=== PATIENT | female | born 1970 | race Caucasian/White ===

== ENCOUNTER → 2016-11-17 | Outpatient (CLI) | payer OTHER ==
[2016-11-19 14:38] LABS: DILUTE RUSSELL VIPOR VENOM 40.6 sec (0.0-47.0); PTT-LA 37.5 sec (0.0-51.9); THROMBIN TIME 18.6 sec (0.0-23.0)
[2016-11-19 17:36] LABS: LUPUS PANEL INTERPRETATION Comment: (.)
== END ==
LOC: OD 14:10
PROVIDERS: ATTEND Obstetrics & Gynecology
DX: M06.9 Rheumatoid arthritis, unspecified (principal)
CPT/HCPCS: 36415; 83520; 85652; 86225; 86235; 86430

== ENCOUNTER 2016-12-19 09:52 | Day surgery (SDC) | payer OTHER ==
[~2016-12-19 09:52] MED LIST: PROPOFOL INJ 200 MG/20 ML VIAL IV ONE
[2016-12-19 12:10] VITALS: BP 145/87
--- NOTE | 2016-12-19 13:27 | Operative Report ---
Operative Report DATE OF SURGERY: 12/19/16 Operative Report: The risks, benefits and alternatives of the procedure including risks of bleeding, perforation requiring surgery are explained to the patient detail and informed consent was obtained. Patient was brought back to the endoscopy suite and placed in the left, lateral decubital position. Timeout was called. Propofol medications administered. A rectal examination was done which did not reveal any masses, tears or fissures. An Olympus videoscope was inserted into the patient's rectum. The scope was then carefully advanced all the way to the cecum. The cecum was identified by the usual anatomical landmarks including the ileocecal valve as well as the appendiceal office. Photodocumentation was obtained. The scope was then sequentially pulled back via the various segments of the colon including the ascending colon, hepatic flexure, transverse colon, splenic flexure, descending colon finding to the rectosigmoid portions of the colon. Retroflexion maneuvers performed. The risks benefits and alternatives of the procedure explained to the patient in detail and informed consent is obtained.A GIF Olympus video scope was inserted into the patient's mouth and hypopharynx, the esophagus is identified intubated and insufflated, the scope was then advanced through the esophagus stomach and duodenum, retroflexion maneuver is done, the esophagus stomach and first and second portions of the duodenum examined PREOPERATIVE DIAGNOSIS: Iron deficiency anemia. Previous history of colon polyp. Change of bowel habits POSTOPERATIVE DIAGNOSIS: Mild right side inflammation status post biopsy. Internal hemorrhoids. Gastritis status post biopsy rule out Helicobacter pylori. Duodenitis status post biopsy rule out celiac disease. Esophagitis versus Srivastava's, biopsies obtained to confirm OPERATION: Colonoscopy with biopsy. EGD with biopsy SURGEON: ROSA ISELA BOWMAN ANESTHESIA: LMAC TISSUE REMOVED OR ALTERED: As discussed above. COMPLICATIONS: None. ESTIMATED BLOOD LOSS: None. INTRAOPERATIVE FINDINGS: As noted above. PROCEDURE: Patient tolerated the procedure well. No immediate postprocedure complications are noted. Patient discharged in good condition. Discharge date 12/19/2016. Discharge diet: Regular. Discharge activity: Regular. 2-3 week follow-up to discuss findings. Patient is instructed to call the office or proceed to the emergency room should there be any further problems or questions. We will wait on pathology.
== END 2016-12-19 12:10 | disposition home or self-care (01) ==
LOC: END 09:52
PROVIDERS: ATTEND Internal Medicine Gastroenterology
PROC: 0DB58ZX Excision of Esophagus, Via Natural or Artificial Opening Endoscopic, Diagnostic (ICD-10-PCS; 2016-12-19)
PROC: 0DBF8ZX Excision of Right Large Intestine, Via Natural or Artificial Opening Endoscopic, Diagnostic (ICD-10-PCS; 2016-12-19)
PROC: 0DB68ZX Excision of Stomach, Via Natural or Artificial Opening Endoscopic, Diagnostic (ICD-10-PCS; principal; 2016-12-19 12:30)
PROC: 0DB98ZX Excision of Duodenum, Via Natural or Artificial Opening Endoscopic, Diagnostic (ICD-10-PCS; 2016-12-19 12:30)
DX: K63.5 Polyp of colon (principal); K29.80 Duodenitis without bleeding; K20.9 Esophagitis, unspecified; K29.50 Unspecified chronic gastritis without bleeding; B96.81 Helicobacter pylori [H. pylori] as the cause of diseases classified elsewhere; K52.9 Noninfective gastroenteritis and colitis, unspecified; K64.8 Other hemorrhoids; J44.9 Chronic obstructive pulmonary disease, unspecified; D50.9 Iron deficiency anemia, unspecified; E78.00 Pure hypercholesterolemia, unspecified; I10 Essential (primary) hypertension; E66.9 Obesity, unspecified; G43.909 Migraine, unspecified, not intractable, without status migrainosus; F90.2 Attention-deficit hyperactivity disorder, combined type; Z68.32 Body mass index [BMI] 32.0-32.9, adult; Z79.51 Long term (current) use of inhaled steroids; Z79.891 Long term (current) use of opiate analgesic; Z87.891 Personal history of nicotine dependence
CPT/HCPCS: 43239; 45380; 88342 ×2; 88305 ×2; J2704; 810

== ENCOUNTER 2016-12-27 11:14 | Outpatient (CLI) | payer OTHER ==
[~2016-12-27 11:14] MED LIST changes: +FERRIC CARBOXYMALTOSE 750 MG in NORMAL SALINE 250 ML IV PRN; +NORMAL SALINE 250 ML IV PRN; -PROPOFOL INJ 200 MG/20 ML VIAL IV ONE
[2016-12-27 11:36] VITALS: BP 139/88
== END 2016-12-27 12:21 | disposition home or self-care (01) ==
LOC: II 11:14 → 5TH 11:24 → II 12:21
PROVIDERS: ATTEND Internal Medicine
PROC: 3E033GC Introduction of Other Therapeutic Substance into Peripheral Vein, Percutaneous Approach (ICD-10-PCS; principal; 2016-12-27)
DX: D50.8 Other iron deficiency anemias (principal); K90.9 Intestinal malabsorption, unspecified
CPT/HCPCS: 96365; J7050; J1439

== ENCOUNTER 2017-01-03 10:41 | Outpatient (CLI) | payer OTHER ==
[~2017-01-03 10:41] MED LIST changes: -NORMAL SALINE 250 ML IV PRN
[2017-01-03] MEDS: NORMAL SALINE 250 ML IV PRN ×2 (11:08→11:26)
[2017-01-03 13:13] VITALS: BP 138/78
== END 2017-01-03 12:15 | disposition home or self-care (01) ==
LOC: II 10:41 → 5TH 10:47 → II 12:15
PROVIDERS: ATTEND Internal Medicine
PROC: 3E0337Z Introduction of Electrolytic and Water Balance Substance into Peripheral Vein, Percutaneous Approach (ICD-10-PCS; principal; 2017-01-03)
DX: D50.8 Other iron deficiency anemias (principal); K90.9 Intestinal malabsorption, unspecified
CPT/HCPCS: 96367; J7050; J1439; 96374

== ENCOUNTER → 2017-01-05 | Outpatient (CLI) | payer OTHER ==
--- NOTE | 2017-01-05 10:35 | WOMENS IMAGING REPORT ---
EXAM DESCRIPTION: U/S BREAST UNILATERAL, COMPL; BILAT DIAGNOSTIC MAMMO W/CAD COMPLETED DATE/TIME: 01/05/2017 10:23 am; 01/05/2017 10:20 am REASON FOR STUDY: LEFT BREAST PAIN; BREAST PAIN; N64.4 COMPARISON: 01/07/2016 and 01/05/2015. TECHNIQUE: Standard craniocaudal and mediolateral oblique views of each breast recorded using digita l acquisition. Additional "push-back" craniocaudal and mediolateral oblique images acquired. Additional true lateral images of the left breast required. LIMITATIONS: None. FINDINGS: IMPLANTS: Bilateral subglandular implants. Appear mammographically intact. RIGHT BREAST MASSES: No suspicious masses. CALCIFICATIONS: No new or suspicious calcifications. ARCHITECTURAL DISTORTION: None. DEVELOPING DENSITY: None. ASYMMETRY: None noted. OTHER: No other significant findings. LEFT BREAST MASSES: No suspicious masses. CALCIFICATIONS: No new or suspicious calcifications. ARCHITECTURAL DISTORTION: None. DEVELOPING DENSITY: None. ASYMMETRY: None noted. OTHER: No other significant finding. Read with the assistance of CAD: .[facility] - R2 Cenova Version 1.3 .[facility] - R2 Cenova Version 1.3 .[facility] - R2 Cenova Version 2.4 .[facility] [place] Cenova Version 2.4 [facility] - R2 Health Program Specialist Version 9.2 BREAST ULTRASOUND: TECHNIQUE: Static and dynamic grayscale images acquired of the right and left breast in the specific areas of clinical/mammographic concern. Selected color Doppler images recorded. ELASTOGRAPHY PERFORMED: No. LIMITATIONS: None. FINDINGS: MASS: Bilateral breast implants which appear sonographically intact. No worrisome sonographic findin gs. ELASTOGRAPHY CHARACTERISTICS: Not applicable. OTHER: No other significant finding. IMPRESSION: Stable bilateral mammogram. Bilateral breast implants appear intact mammographically an d sonographically. No worrisome findings. BREAST DENSITY: b. There are scattered areas of fibroglandular density. BIRAD: 2 Benign findings. RECOMMENDATION: RECOMMENDED FOLLOW UP: Birads 1 or 2: No breast imaging finding to explain the patie nt's presenting complaint. Further intervention should be based on the degree of clinical suspicion. SPECIFIC INTERVENTION/IMAGING/CONSULTATION RECOMMENDED:No additional intervention/ imaging/consultati on needed at this time. COMMUNICATION:The negative/benign results were communicated to the patient. COMMENT: The patient has been notified of the results by letter per SA requirements. Additional no tification policies are in place for contacting patient with suspicious or incomplete findings. Quality ID #[id number]: The [employer] recommends an annual screening mammogram for women aged 40 years or over. This facility utilizes a reminder system to ensure that all patients receive reminder letters, and/or direct phone calls for appointments. This includes reminders for routine scr eening mammograms, diagnostic mammograms, or other Breast Imaging Interventions when appropriate. Th is patient will be placed in the appropriate reminder system. The [employer] (ACR) has developed recommendations for screening MRI of the breast s in certain patient populations, to be used in conjunction with mammography. Breast MRI surveillanc e may be appropriate for women with more than 20% lifetime risk of developing breast cancer as deter mined by genetic testing, significant family history of the disease, or history of mantle radiation f or Hodgkins Disease. ACR Practice Guidelines 2008. TECHNICAL DOCUMENTATION: FINDING NUMBER: (1) ASSESSMENT: (1) JOB ID: [id number] [employer]- All Rights Reserved
--- NOTE | 2017-01-05 10:35 | WOMENS IMAGING REPORT ---
EXAM DESCRIPTION: U/S BREAST UNILATERAL, COMPL; BILAT DIAGNOSTIC MAMMO W/CAD COMPLETED DATE/TIME: 01/05/2017 10:23 am; 01/05/2017 10:20 am REASON FOR STUDY: LEFT BREAST PAIN; BREAST PAIN; N64.4 COMPARISON: 01/07/2016 and 01/05/2015. TECHNIQUE: Standard craniocaudal and mediolateral oblique views of each breast recorded using digita l acquisition. Additional "push-back" craniocaudal and mediolateral oblique images acquired. Additional true lateral images of the left breast required. LIMITATIONS: None. FINDINGS: IMPLANTS: Bilateral subglandular implants. Appear mammographically intact. RIGHT BREAST MASSES: No suspicious masses. CALCIFICATIONS: No new or suspicious calcifications. ARCHITECTURAL DISTORTION: None. DEVELOPING DENSITY: None. ASYMMETRY: None noted. OTHER: No other significant findings. LEFT BREAST MASSES: No suspicious masses. CALCIFICATIONS: No new or suspicious calcifications. ARCHITECTURAL DISTORTION: None. DEVELOPING DENSITY: None. ASYMMETRY: None noted. OTHER: No other significant finding. Read with the assistance of CAD: .[facility] - R2 Cenova Version 1.3 .[facility] Imaging - R2 Cenova Version 1.3 .[facility] - R2 Cenova Version 2.4 .[facility] [place] - R2 Cenova Version 2.4 .[facility] - R2 Market Research Analyst Version 9.2 BREAST ULTRASOUND: TECHNIQUE: Static and dynamic grayscale images acquired of the right and left breast in the specific areas of clinical/mammographic concern. Selected color Doppler images recorded. ELASTOGRAPHY PERFORMED: No. LIMITATIONS: None. FINDINGS: MASS: Bilateral breast implants which appear sonographically intact. No worrisome sonographic findin gs. ELASTOGRAPHY CHARACTERISTICS: Not applicable. OTHER: No other significant finding. IMPRESSION: Stable bilateral mammogram. Bilateral breast implants appear intact mammographically an d sonographically. No worrisome findings. BREAST DENSITY: b. There are scattered areas of fibroglandular density. BIRAD: 2 Benign findings. RECOMMENDATION: RECOMMENDED FOLLOW UP: Birads 1 or 2: No breast imaging finding to explain the patie nt's presenting complaint. Further intervention should be based on the degree of clinical suspicion. SPECIFIC INTERVENTION/IMAGING/CONSULTATION RECOMMENDED:No additional intervention/ imaging/consultati on needed at this time. COMMUNICATION:The negative/benign results were communicated to the patient. COMMENT: The patient has been notified of the results by letter per SA requirements. Additional no tification policies are in place for contacting patient with suspicious or incomplete findings. Quality ID #[id number]: The [employer] recommends an annual screening mammogram for women aged 40 years or over. This facility utilizes a reminder system to ensure that all patients receive reminder letters, and/or direct phone calls for appointments. This includes reminders for routine scr eening mammograms, diagnostic mammograms, or other Breast Imaging Interventions when appropriate. Th is patient will be placed in the appropriate reminder system. The [employer] (ACR) has developed recommendations for screening MRI of the breast s in certain patient populations, to be used in conjunction with mammography. Breast MRI surveillanc e may be appropriate for women with more than 20% lifetime risk of developing breast cancer as deter mined by genetic testing, significant family history of the disease, or history of mantle radiation f or Hodgkins Disease. ACR Practice Guidelines 2008. TECHNICAL DOCUMENTATION: FINDING NUMBER: (1) ASSESSMENT: (1) JOB ID: [id number] [employer]- All Rights Reserved
== END ==
LOC: WI 06:56
PROVIDERS: ATTEND Obstetrics & Gynecology
DX: N64.4 Mastodynia (principal); Z98.82 Breast implant status
CPT/HCPCS: 76641; G0204; 77066

== ENCOUNTER → 2017-01-26 | Outpatient (CLI) | payer OTHER ==
--- NOTE | 2017-01-26 12:52 | RADIOLOGY REPORT (SQ) ---
EXAM DESCRIPTION: CHEST PA/LATERAL COMPLETED DATE/TIME: 01/26/2017 12:42 pm REASON FOR STUDY: PRE OP COMPARISON: 12/02/2015 EXAM PARAMETERS: NUMBER OF VIEWS: two views TECHNIQUE: Digital Frontal and Lateral radiographic views of the chest acquired. RADIATION DOSE: NA LIMITATIONS: none FINDINGS: LUNGS AND PLEURA: No opacities, masses or pneumothorax. No pleural effusion. MEDIASTINUM AND HILAR STRUCTURES: No masses or contour abnormalities. HEART AND VASCULAR STRUCTURES: Heart normal size. No evidence for failure. BONES: No acute findings. HARDWARE: None in the chest. OTHER: No other significant finding. IMPRESSION: NO SIGNIFICANT RADIOGRAPHIC FINDING IN THE CHEST. TECHNICAL DOCUMENTATION: JOB ID: [id number] [employer]- All Rights Reserved
[2017-01-26 13:11] LABS: ABSOLUTE EOSINOPHILS # (AUTO) 0.2 10^3/uL (0.0-0.6); ABSOLUTE MONOCYTES (AUTO) 0.4 10^3/uL (0.1-1.4); ABSOLUTE NEUT (AUTO) 4.5 10^3/uL (1.7-8.2); BASOPHILS % (AUTO) 0.6 % (0-2); EOSINOPHILS % (AUTO) 2.3 % (0-6); HEMATOCRIT 43.5 % (36.0-47.0); HEMOGLOBIN 15.4 g/dL (12.0-15.5); HGB HCT DIFFERENCE 2.7; LYMPHOCYTES % (AUTO) 28.7 % (13-45); MEAN CORPUSCULAR HEMOGLOBIN 31.6 pg (27.0-33.4); MEAN CORPUSCULAR HGB CONC 35.4 g/dL (32.0-36.0); MEAN CORPUSCULAR VOLUME 89 fl (80-97); MONOCYTES % (AUTO) 5.6 % (3-13); RED BLOOD COUNT 4.87 10^6/uL (3.72-5.28); RED CELL DISTRIBUTION WIDTH 14.4 % (11.5-14.0); SEGMENTED NEUTROPHILS % (AUTO) 62.8 % (42-78); WHITE BLOOD COUNT 7.1 10^3/uL (4.0-10.5)
[2017-01-26 13:28] LABS: ANION GAP 17 (5-19); BLOOD UREA NITROGEN 6 mg/dL (7-20); CALCIUM 9.3 mg/dL (8.4-10.2); CARBON DIOXIDE 20 mmol/L (22-30); CHLORIDE 107 mmol/L (98-107); CREATININE RESULT 0.52 mg/dL (0.52-1.25); GLUCOSE 151 mg/dL (75-110); POTASSIUM 3.7 mmol/L (3.6-5.0); SODIUM 144.3 mmol/L (137-145)
== END ==
LOC: OD 11:45
PROVIDERS: ATTEND Orthopaedic Surgery
DX: Z01.89 Encounter for other specified special examinations (principal)
CPT/HCPCS: 36415; 71020; 80048; 85025

== ENCOUNTER 2017-02-07 16:43 | Emergency (ER) | payer OTHER ==
[2017-02-07 17:38] LABS: HEMATOCRIT 43.4 % (36.0-47.0); HEMOGLOBIN 15.1 g/dL (12.0-15.5); HGB HCT DIFFERENCE 1.9; MEAN CORPUSCULAR HEMOGLOBIN 31.7 pg (27.0-33.4); MEAN CORPUSCULAR HGB CONC 34.7 g/dL (32.0-36.0); MEAN CORPUSCULAR VOLUME 91 fl (80-97); RED BLOOD COUNT 4.75 10^6/uL (3.72-5.28); WHITE BLOOD COUNT 10.8 10^3/uL (4.0-10.5)
[2017-02-07 17:54] LABS: BAND NEUTROPHILS % (MANUAL) 1 % (3-5); BASOPHILS % (MANUAL) 0 % (0-2); EOSINOPHILS % (MANUAL) 0 % (0-6); LYMPHOCYTES % (MANUAL) 5 % (13-45); TOTAL CELLS COUNTED 100
[2017-02-07 17:55] LABS: ALANINE AMINOTRANSFERASE 35 U/L (9-52); ALBUMIN 4.6 g/dL (3.5-5.0); ALKALINE PHOSPHATASE 75 U/L (38-126); ANION GAP 16 (5-19); ANISOCYTOSIS SLIGHT; ASPARTATE AMINO TRANSFERASE 25 U/L (14-36); BILIRUBIN,DIRECT 0.3 mg/dL (0.0-0.4); BILIRUBIN,TOTAL 0.4 mg/dL (0.2-1.3); BLOOD UREA NITROGEN 11 mg/dL (7-20); CALCIUM 9.3 mg/dL (8.4-10.2); CARBON DIOXIDE 23 mmol/L (22-30); CHLORIDE 104 mmol/L (98-107); CREATINE KINASE 98 U/L (30-135); CREATININE RESULT 0.65 mg/dL (0.52-1.25); GLUCOSE 278 mg/dL (75-110); POTASSIUM 4.1 mmol/L (3.6-5.0); SODIUM 142.5 mmol/L (137-145); TOTAL PROTEIN 7.1 g/dL (6.3-8.2)
--- NOTE | 2017-02-07 18:00 | ER Document Report ---
ED Respiratory Problem - General Chief Complaint: Shortness Of Breath Stated Complaint: SHORTNESS OF BREATH Time Seen by Provider: 02/07/17 17:54 Mode of Arrival: Medic Information source: Patient, Emergency Med Personnel TRAVEL OUTSIDE OF THE [place] IN LAST 30 DAYS: No - HPI Patient complains to provider of: Short of breath Onset: This morning - ENROUTE HOME FROM OUTPATIENT SURG. (R. SHOULDER) Duration: Continuous Context: Recent surgery Cough: Nonproductive Sputum amount: None Associated symptoms: Cough, Short of breath, Other - R. UPPER EXTREMITY STILL ANESTHETIC. ? R. FACIAL DROOP. denies: Chest pain/discomfort, Congestion, Heart racing, Hurts to breathe Similar symptoms previously: Yes - "ALLERGIES" Recently seen / treated by doctor: Yes - ORTHO. SURG. THIS AM. - Related Data Allergies/Adverse Reactions: meperidine HCl [From Demerol] Allergy (Verified 02/07/17 17:16) sumatriptan [From Imitrex] Allergy (Verified 02/07/17 17:16) THROAT SWELLS sumatriptan succinate [From Imitrex] Allergy (Verified 02/07/17 17:16) THROAT SWELLS Bee Stings Allergy (Uncoded 02/07/17 17:16) Past Medical History - General Information source: Patient - Social History Smoking Status: Current Some Day Smoker Chew tobacco use (# tins/day): No Frequency of alcohol use: None Drug Abuse: None Lives with: Spouse/Significant other Family History: Reviewed & Not Pertinent - Past Medical History Cardiac Medical History: Reports: Hx Coronary Artery Disease - HYPERLIPIDEMIA , Hx Hypertension - on meds Denies: Hx Heart Attack Pulmonary Medical History: Reports: Hx Asthma - inhalers,neb tx, Hx Bronchitis - hx of, Hx COPD, Hx Pneumonia - hx of EENT Medical History: Reports: None Neurological Medical History: Reports: Hx Migraine. 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 Denies : Hx Pacemaker - Immunizations Hx Diphtheria, Pertussis, Tetanus Vaccination: Yes Review of Systems - Review of Systems Constitutional: No symptoms reported EENT: No symptoms reported Cardiovascular: No symptoms reported Respiratory: See HPI Gastrointestinal: No symptoms reported Genitourinary: No symptoms reported Musculoskeletal: No symptoms reported Skin: No symptoms reported Neurological/Psychological: No symptoms reported Physical Exam - Vital signs Vitals: Pulse Ox 94 02/07/17 16:54 Interpretation: Hypertensive, Tachycardic. No: Hypoxic - General General appearance: Appears well, Alert In distress: None - HEENT Head: Normocephalic Eyes: Normal Conjunctiva: Normal Ears: Normal Nasal: Normal Mouth/Lips: Normal Mucous membranes: Normal Pharynx: Normal - Respiratory Respiratory status: No respiratory distress Breath sounds: Decreased air movement - RIGHT BASE - Cardiovascular Rhythm: Regular Heart sounds: Normal auscultation Murmur: No - Abdominal Inspection: Normal Distension: No distension Bowel sounds: Normal - Extremities General upper extremity: No: Normal inspection General lower extremity: Normal inspection. No: Tender, Edema Shoulder: Other - IN BANDAGE - Neurological Neuro grossly intact: Yes - UPPER EXTREMITY FLACCID, ANESTHETIC Cognition: Normal Orientation: AAOx4 - Psychological Associated symptoms: Normal affect, Normal mood - Skin Skin Temperature: Warm Skin Moisture: Dry Skin Color: Normal Skin Turgor: Elastic Course - Vital Signs Vital signs: Temp Pulse Resp BP Pulse Ox 28 H 138/81 H 94 02/07/17 19:00 02/07/17 18:56 02/07/17 19:00 - Laboratory Result Diagrams: 02/07/17 17:09 02/07/17 17:09 Laboratory results interpreted by me: 02/07/17 02/07/17 17:09 17:09 WBC 10.8 H RDW 15.0 H Seg Neuts % (Manual) 93 H Band Neutrophils % 1 L Lymphocytes % (Manual) 5 L Monocytes % (Manual) 1 L Abs Neuts (Manual) 10.2 H Glucose 278 H - EKG Interpretation by Me EKG shows normal: Sinus rhythm, QRS Complexes - DECRASED R WAVES LATERALLY, NEW. abnormal: ST-T Waves - INF. T ABNLS, NS Rate: Normal Rhythm: NSR Voltage: Consistant with LVH P Waves: LAE When compared to previous EKG there are: Changes noted Discharge - Discharge Clinical Impression: Pneumonia Qualifiers: Pneumonia type: due to unspecified organism Laterality: right Lung location: lower lobe of lung Qualified Code(s): J18.1 - Lobar pneumonia, unspecified organism Condition: Stable Disposition: HOME, SELF-CARE Instructions: Pneumonia ([facility]), Azithromycin ([facility]), Rocephin ([facility]) Additional Instructions: REST, DRINK PLENTY OF FLUIDS. MEDS DIRECTED. FOLLOW UP WITH YOUR PRIMARY CARE PROVIDER OR RETURN TO E.R. IF PROBLEMS, ANY TIME. Prescriptions: Azithromycin [Zithromax 250 mg Tablet] 250 mg PO ASDIR PRN #6 tablet PRN Reason: Referrals: BIRGIT JAMA MD [Primary Care Provider] - Follow up as needed
--- NOTE | 2017-02-07 18:02 | RADIOLOGY REPORT (SQ) ---
EXAM DESCRIPTION: CHEST SINGLE VIEW COMPLETED DATE/TIME: 02/07/2017 5:52 pm REASON FOR STUDY: sob COMPARISON: 01/26/2017 EXAM PARAMETERS: NUMBER OF VIEWS: One view. TECHNIQUE: Single frontal radiographic view of the chest acquired. RADIATION DOSE: NA LIMITATIONS: None. FINDINGS: LUNGS AND PLEURA: There is some ill-defined opacification in the medial right base. MEDIASTINUM AND HILAR STRUCTURES: No masses. Contour normal. HEART AND VASCULAR STRUCTURES: Heart size is borderline. There is no failure. BONES: No acute findings. HARDWARE: None in the chest. OTHER: No other significant finding. IMPRESSION: 1. Borderline cardiomegaly without failure. 2. Cannot exclude a limited right lower lobe pneumonia. TECHNICAL DOCUMENTATION: JOB ID: [id number]
[2017-02-07 18:05] LABS: CREATINE KINASE MB 1.45 ng/mL (<4.55); TROPONIN I < 0.012 ng/mL
--- NOTE | 2017-02-07 19:06 | RADIOLOGY REPORT (SQ) ---
EXAM DESCRIPTION: CTA CHEST COMPLETED DATE/TIME: 02/07/2017 6:45 pm REASON FOR STUDY: DYSPNEA, RECENT SURG., RLL DENSITY ON CXR COMPARISON: Chest x-ray same date, RLL infiltrate. TECHNIQUE: CT scan of the chest performed using helical scanning technique with dynamic intravenous contrast injection. Images reviewed with lung, soft tissue and bone windows. Reconstructed coronal and sagittal MPR images reviewed. Additional 3 dimensional post-processing performed to develop Maximal Intensity Projection images (MT P). All images stored on PACS. All CT scanners at this facility use dose modulation, iterative reconstruction, and/or weight based d osing when appropriate to reduce radiation dose to as low as reasonably achievable (ALARA). [facility]: Dose Right [facility]: CareDose [facility]: Dose Right [facility]: Teradose 4D [facility]: Rise CONTRAST TYPE AND DOSE: contrast/concentration: Isovue 370.00 mg/ml; Total Contrast Delivered: 73.0 ml; Total Saline Delivered: 71.0 ml 73 mL Isovue 370 intravenously Contrast bolus optimized for the pulmonary arteries. Not diagnostic for the aorta. RENAL FUNCTION: Creatinine 0.65 RADIATION DOSE: Up-to-date CT equipment and radiation dose reduction techniques were employed. CTDIv ol: 28.6 - 41.3 mGy. DLP: 1008 mGy-cm. . LIMITATIONS: None. FINDINGS: LUNGS AND PLEURA: Right lower lobe consolidation is seen with air bronchograms, concerning for pneumonia. AORTA AND GREAT VESSELS: No aneurysm. Contrast bolus not optimized for the aorta. HEART: No pericardial effusion. No significant coronary artery calcifications. PULMONARY ARTERIES: No emboli visualized in the main pulmonary arteries or the segmental branches. HILAR AND MEDIASTINAL STRUCTURES: No identified masses or abnormal nodes. HARDWARE: Breast implants. UPPER ABDOMEN: Liver density concerning fatty change. No ascites. THYROID AND OTHER SOFT TISSUES: No masses. No adenopathy. BONES: No acute or significant finding. 3D MIPS: Confirm above findings. OTHER: In the does of the body IMPRESSION: Right lower lobe consolidation with air bronchogram, concerning for pneumonia. No CT evidence for central pulmonary embolus. COMMENT: Quality ID # [id number]: Final reports with documentation of one or more dose reduction techniques (e.g., Automated exposure control, adjustment of the mA and/or kV according to patient size, use of iterative reconstruction technique) TECHNICAL DOCUMENTATION: JOB ID: [id number] [employer]- All Rights Reserved
[2017-02-07 19:21] VITALS: BP 138/81
[2017-02-07] MEDS ORDERED: HYDROMORPHONE HCL INJ/PF 2 MG/ML AMPULE IV ONE (19:36)
[2017-02-07] MEDS ORDERED: ONDANSETRON HCL INJ/PF 4 MG/2 ML SDV IV ONE (19:36)
[2017-02-07] MEDS ORDERED: CEFTRIAXONE 1 GM/D5W RTU 1 GM/50 ML RTUPB IV ONE (19:38)
[2017-02-07] MEDS ORDERED: CEFTRIAXONE INJ 1000 MG VIAL IM ONE (19:44)
[2017-02-07] MEDS ORDERED: LIDOCAINE 1% INJ-PF (10 MG/ML) 30 ML SDV INFIL ONE (19:44)
--- NOTE | 2017-02-08 10:44 | EKG REPORT ---
SEVERITY:- ABNORMAL ECG - SINUS RHYTHM PROBABLE LEFT ATRIAL ABNORMALITY LEFT VENTRICULAR HYPERTROPHY NONSPECIFIC T ABNORMALITIES, INFERIOR LEADS PROLONGED QT INTERVAL : Confirmed by: Dieudonne Corley 08-Feb-2017 10:42:43
== END 2017-02-07 20:18 | disposition home or self-care (01) ==
LOC: ER 16:43
DX: J18.1 Lobar pneumonia, unspecified organism (principal); R06.02 Shortness of breath; R05 Cough
CPT/HCPCS: 93005; 99285; 96372; 96374; 96375; 36415; 82553; 82550; 85025; 80053; 84484; 71010; 71275; 93010; J1170; J0696; J2405

== ENCOUNTER → 2017-03-20 | Outpatient (CLI) | payer OTHER ==
[2017-03-20 12:17] LABS: HEMATOCRIT 45.8 % (36.0-47.0); HEMOGLOBIN 15.8 g/dL (12.0-15.5); HGB HCT DIFFERENCE 1.6; MEAN CORPUSCULAR HEMOGLOBIN 31.2 pg (27.0-33.4); MEAN CORPUSCULAR HGB CONC 34.5 g/dL (32.0-36.0); MEAN CORPUSCULAR VOLUME 90 fl (80-97); RED BLOOD COUNT 5.07 10^6/uL (3.72-5.28); RED CELL DISTRIBUTION WIDTH 13.9 % (11.5-14.0); WHITE BLOOD COUNT 11.8 10^3/uL (4.0-10.5)
--- NOTE | 2017-03-20 13:02 | RADIOLOGY REPORT (SQ) ---
EXAM DESCRIPTION: CHEST PA/LATERAL COMPLETED DATE/TIME: 03/20/2017 10:46 am REASON FOR STUDY: CHEST PAIN, UNSPECIFIED COMPARISON: CT angio chest 02/07/2017 EXAM PARAMETERS: NUMBER OF VIEWS: two views TECHNIQUE: Digital Frontal and Lateral radiographic views of the chest acquired. RADIATION DOSE: NA LIMITATIONS: none FINDINGS: LUNGS AND PLEURA: No opacities, masses or pneumothorax. No pleural effusion. MEDIASTINUM AND HILAR STRUCTURES: No masses or contour abnormalities. HEART AND VASCULAR STRUCTURES: Heart normal size. No evidence for failure. BONES: No acute findings. HARDWARE: None in the chest. OTHER: No other significant finding. IMPRESSION: NO SIGNIFICANT RADIOGRAPHIC FINDING IN THE CHEST. TECHNICAL DOCUMENTATION: JOB ID: [id number] [employer]- All Rights Reserved
== END ==
LOC: OD 10:34
PROVIDERS: ATTEND Obstetrics & Gynecology
DX: R07.9 Chest pain, unspecified (principal)
CPT/HCPCS: 36415; 71020; 84484; 85027; 85379

== ENCOUNTER → 2019-01-15 | Outpatient (CLI) | payer OTHER ==
--- NOTE | 2019-01-15 10:49 | WOMENS IMAGING REPORT ---
EXAM DESCRIPTION: BILAT DIAGNOSTIC MAMMO W/CAD COMPLETED DATE/TIME: 01/15/2019 9:40 am REASON FOR STUDY: Z98.87 BILAT DX Z98.82 BREAST IMPLANT STATUS COMPARISON: Digital diagnostic bilateral mammogram dated 01/05/2017 and digital bilateral screening m ammograms dated 01/07/2016 and 01/05/2015. EXAM PARAMETERS: Standard craniocaudal and mediolateral oblique views of each breast recorded using digital acquisition. Read with the assistance of CAD: .[facility] - [employer] Manager Version 9.2 LIMITATIONS: None. FINDINGS: RIGHT BREAST MASSES: No suspicious masses. CALCIFICATIONS: No new or suspicious calcifications. ARCHITECTURAL DISTORTION: None. DEVELOPING DENSITY: None. ASYMMETRY: None noted. OTHER: Right subglandular implant, stable finding. LEFT BREAST MASSES: No suspicious masses. CALCIFICATIONS: No new or suspicious calcifications. ARCHITECTURAL DISTORTION: None. DEVELOPING DENSITY: None. ASYMMETRY: Stable asymmetry upper left breast best noted on the LMLOID view. OTHER: Left subglandular implant, stable finding. BREAST ULTRASOUND: TECHNIQUE: Static and dynamic grayscale images acquired of the right and left breast in the specific areas of clinical/mammographic concern. Selected color Doppler images recorded. ELASTOGRAPHY PERFORMED: No. LIMITATIONS: None. FINDINGS: RIGHT MASS: Comparison to the prior examination dated 01/05/2017. The right breast was scanned from the 12 to 12 o'clock axes(including the areas of clinical concern). No mass identified. Normal glandular t issue. ELASTOGRAPHY CHARACTERISTICS: Not applicable. OTHER: Right breast implant, stable finding. FINDINGS: LEFT MASS: Comparison to the prior examination dated 01/05/2017. The left breast was scanned from the 12 to 12 o'clock axes. No mass identified. Normal glandular tissue. ELASTOGRAPHY CHARACTERISTICS: Not applicable. OTHER: Left breast implant, stable finding. IMPRESSION: 1. Stable examination. No mammographic evidence of malignancy. BREAST DENSITY: b. There are scattered areas of fibroglandular density. BIRAD: ASSESSMENT: 2 Benign findings. RECOMMENDATION: 1. Clinical correlation and patient advised to follow-up with her provider. COMMENT: The patient has been notified of the results by letter per MQSA requirements. Additional no tification policies are in place for contacting patient with suspicious or incomplete findings. Quality ID #[id number]: The [employer] recommends an annual screening mammogram for women aged 40 years or over. This facility utilizes a reminder system to ensure that all patients receive reminder letters, and/or direct phone calls for appointments. This includes reminders for routine scr eening mammograms, diagnostic mammograms, or other Breast Imaging Interventions when appropriate. Th is patient will be placed in the appropriate reminder system. TECHNICAL DOCUMENTATION: FINDING NUMBER: (1) ASSESSMENT: (1) JOB ID: [id number] [employer]- All Rights Reserved Reading location - IP/workstation name: [email or web address]
--- NOTE | 2019-01-15 10:49 | WOMENS IMAGING REPORT ---
EXAM DESCRIPTION: U/S BREAST UNILATERAL, COMPL COMPLETE DATE/TIME: 01/15/2019 10:18 am REASON FOR STUDY: RT BREAST PAIN Z98.87 Z98.82 BREAST IMPLANT STATUS FINDINGS: Please see combined report for performance of procedure and radiologic supervision and int erpretation. IMPRESSION: Please see combined report for performance of procedure and radiologic supervision and i nterpretation. Reading location - IP/workstation name: [email or web address]
--- NOTE | 2019-01-15 10:51 | WOMENS IMAGING REPORT ---
EXAM DESCRIPTION: U/S BREAST UNILATERAL, COMPL COMPLETE DATE/TIME: 01/15/2019 10:18 am REASON FOR STUDY: LT BREAST Z98.87 Z98.82 BREAST IMPLANT STATUS FINDINGS: Please see combined report for performance of procedure and radiologic supervision and int erpretation. IMPRESSION: Please see combined report for performance of procedure and radiologic supervision and i nterpretation. Reading location - IP/workstation name: [email or web address]
== END ==
LOC: WI 09:05
PROVIDERS: ATTEND Nurse Practitioner Primary Care
DX: Z51.89 Encounter for other specified aftercare (principal); Z98.82 Breast implant status
CPT/HCPCS: 76641; 77066